=== PATIENT | female | born 1965 | race Two or more races ===

== ENCOUNTER 2020-02-19 14:42 | Emergency (ER) | payer OTHER ==
[~2020-02-19] VITALS: Ht 170.2 cm; Wt 86.2 kg
== END 2020-02-19 20:34 | disposition home or self-care (01) ==
LOC: ER 14:42 → EDBD 15:02 → ER 20:34
DX: K42.9 Umbilical hernia without obstruction or gangrene (principal); Z20.828 Contact with and (suspected) exposure to other viral communicable diseases